=== PATIENT | male | born 1960 | race Caucasian/White ===

== ENCOUNTER → 2018-05-18 11:04 | Outpatient (CLI) | payer OTHER, SELFPAY ==
[2018-04-30 15:09] VITALS: BMI 25.0
[2018-05-18 12:35] LABS: AST(SGOT) 19 U/L (15-37); Alanine Aminotransfer ALT/SGPT 23 U/L (16-61); Albumin, Serum 4.2 g/dL (3.2-5.0); Alkaline Phosphatase 212 U/L (45-117); Cholesterol 134 mg/dL (200); Globulin 3.8 g/dL (2.2-4.2); High Density Lipoprotein 34 mg/dL; Triglycerides 108 mg/dL; Very Low Density Lipoprotein 22 mg/dL (5-40)
== END ==
LOC: LAB 11:06
PROVIDERS: Referring Provider Internal Medicine Cardiovascular Disease; Visit Provider Internal Medicine Cardiovascular Disease
DX: E78.5 Hyperlipidemia, unspecified (principal)
CPT/HCPCS: 36415; 80061; 80076

== ENCOUNTER → 2019-01-21 | Outpatient (CLI) | payer OTHER, SELFPAY ==
[2018-12-07 09:58] VITALS: BMI 23.8
--- NOTE | 2019-01-21 10:33 | STE_ITS ---
Reason For Study: OTHER-HDL,HTN Stress Results Protocol: Keith Protocol Maximum Predicted HR: 163 bpm Target HR: 139 bpm % Maximum Predicted HR: 66 % DurationHeart Rate Stage (mm:ss) (bpm) BP Comment BASELINE 48 112/74 STAGE 1 3:00 86 140/82 STAGE 2 3:00 98 142/80 STAGE 3 3:00 107 162/88LEG CRAMPING, SOB RECOVERY 71 102/60 Stress Duration: 9:00 mm:ss Maximum Stress HR: 107 bpm Baseline Echocardiogram Findings The estimated ejection fraction is 65 %. Stress Echo Wall motion Data Resting WM Intermediate WM Stress WM Resting Wall Motion Wall Motion Stress No regional wall motion No regional wall motion abnormalities noted. abnormalities noted. EKG Data The baseline ECG displays normal sinus rhythm. The patient exercised according to the regular Keith protocol for a total duration of 9:00. The maximum heart rate attained was 109 beats per minute. This was 66% of maximum predicted heart rate. The patient exercised into stage 4 of the Keith protocol. During stress, there were no ST or T wave changes noted to suggest ischemia. No clinical angina was noted. No arrhythmias noted. Interpretation Summary The estimated ejection fraction is 65 %. Normal, submaximal, treadmill echocardiogram. Negative for ischemia by EKG and echocardiographic criteria. No anginal symptoms noted. No arrhythmias noted. Appropriate blood pressure response to exercise. Below average exercise capacity for age. Decreased sensitivity due to failure to reach target heart rate. Test terminated due to dyspnea which may be an anginal equivalent. Final LVEF is 75%. No complications. Ordering Physician: Grzegorz Calderón MD Referring Physician: Grzegorz Calderón Performed By: Julien Fernandez RCS
== END | disposition home or self-care (01) ==
LOC: CVS 10:32
PROVIDERS: Referring Provider Internal Medicine Cardiovascular Disease; Visit Provider Internal Medicine Cardiovascular Disease
DX: E78.5 Hyperlipidemia, unspecified (principal); I10 Essential (primary) hypertension; Z72.0 Tobacco use; Z82.49 Family history of ischemic heart disease and other diseases of the circulatory system
CPT/HCPCS: 93017; 93350